=== PATIENT | female | born 1970 | race Caucasian/White ===

== ENCOUNTER 2024-04-08 10:21 | Day surgery (SDC) | payer SELFPAY ==
[2024-04-07 12:51] VITALS: BMI 21.7
[2024-04-08] MEDS ORDERED: Midazolam HCl 2 mg/2 ml Vial ONE ×2 (11:39→12:03)
[2024-04-08] MEDS ORDERED: fentaNYL 50 mcg/mL 1 mL Vial ONE (11:39)
[2024-04-08] MEDS ORDERED: Ropivacaine 0.5% HCl/PF (150 MG/30 ML VIAL) ONE (11:40)
[2024-04-08] MEDS ORDERED: Bupivacaine PF 0.5% 30 ML VIAL ONE (11:40)
[2024-04-08] MEDS ORDERED: CEFAZOLIN 2 GM VIAL ONE (11:44)
[2024-04-08] MEDS ORDERED: Dexamethasone 20 MG/5 ML VIAL ONE (12:03)
[2024-04-08] MEDS ORDERED: Lidocaine 1% PF 5 ML VIAL ONE (12:03)
[2024-04-08] MEDS ORDERED: fentaNYL PF 100 MCG/2 ML SYRINGE ONE (12:03)
[2024-04-08] MEDS ORDERED: PROPOFOL 20 ML ONE (12:03)
[2024-04-08] MEDS ORDERED: Ondansetron PF 4 MG/2 ML Vial ONE (12:03)
[2024-04-08] MEDS ORDERED: Bupivacaine HCl 0.5%/Epinephrine 1:200,000/PF 30 ml Vial ONE (12:05)
[2024-04-08] MEDS ORDERED: HYDROcodone/Acetaminophen 10/325 mg Tablet PO PRN ×2 (12:30)
[2024-04-08] MEDS ORDERED: Promethazine HCl 25 MG/ML VIAL IM PRN (12:30)
[2024-04-08] MEDS ORDERED: Ondansetron PF 4 MG/2 ML Vial IVP PRN (12:30)
[2024-04-08] MEDS ORDERED: traMADol HCl 50 MG TAB PO PRN ×2 (12:30)
[2024-04-08] MEDS ORDERED: Ropivacaine 0.2% 550 ML 550 ML NERVE BLCK SCH (12:30)
[2024-04-08] MEDS ORDERED: Zolpidem Tartrate 5 MG TAB PO PRN (12:30)
[2024-04-08] MEDS ORDERED: PHENYLEPHRINE-NS 100 MCG/ML 10 ML SYRINGE ONE (12:43)
[2024-04-08] MEDS ORDERED: Glycopyrrolate 0.2 MG/ML 5 ML SYRINGE ONE (12:44)
[2024-04-08] MEDS ORDERED: Sodium Chloride 0.9% 250 ML 250 ML ONE (13:21)
== END 2024-04-08 15:12 | disposition home or self-care (01) ==
LOC: SDC 10:21
PROVIDERS: ATTEND Orthopaedic Surgery
PROC: 3E0T3BZ Introduction of Anesthetic Agent into Peripheral Nerves and Plexi, Percutaneous Approach (ICD-10-PCS; principal; 2024-04-08)
PROC: 0QSH04Z Reposition Left Tibia with Internal Fixation Device, Open Approach (ICD-10-PCS; principal; 2024-04-08)
DX: S82.852A Displaced trimalleolar fracture of left lower leg, initial encounter for closed fracture (principal); I10 Essential (primary) hypertension; F17.200 Nicotine dependence, unspecified, uncomplicated; Z90.710 Acquired absence of both cervix and uterus; Z79.899 Other long term (current) drug therapy; W11.XXXA Fall on and from ladder, initial encounter
CPT/HCPCS: A4306; C1713; J0665; J1100; J2250; J2405; J2704; J2795; J3010; J7050